=== PATIENT | male | born 1965 | race Caucasian/White ===

== ENCOUNTER 2016-10-31 00:26 | Emergency (ER) | payer BC ==
[2016-10-31] MEDS ORDERED: NS 0.9% 1000 ML* 1,000 ML IV ONE (00:50)
[2016-10-31] MEDS ORDERED: Ketorolac INJ* 30 MG/ML 1 ML VIAL IV PUSH ONE (00:50)
--- NOTE | 2016-10-31 01:03 | ED ---
consuelo Steele Timothy, scribed for Morris Araujo MD on 10/31/16 at 0043 . GI/ HPI - HPI Summary HPI Summary: Sabas Velasquez is a 51 yo male presenting to [facility] with 1/10 right flank pain since 2030 10/30/16. He denies nausea. He states he is passing a kidney stone. He has self-medicated with 2 pain pills with some relief. His MHx includes kidney stones. - History of Current Complaint Chief Complaint: EDFlankPain Time Seen by Provider: 10/31/16 00:41 Stated Complaint: RT FLANK PAIN Hx Obtained From: Patient Timing: Constant Severity: Moderate Current Severity: Moderate Pain Intensity: 1 Location of Pain: Flank - right Associated Signs and Symptoms: Positive: Flank Pain - right side - Allergy/Home Medications Allergies/Adverse Reactions: Allergies Allergy/AdvReac Type Severity Reaction Status Date / Time No Known Allergies Allergy Verified 10/31/16 00:30 PMH/Surg Hx/FS Hx/Imm Hx History: Reports: Hx Kidney Stones Infectious Disease History: No Infectious Disease History: Denies: Traveled Outside the [place] in Last 30 Days - Family History Known Family History: Negative: Cardiac Disease, Diabetes - Social History Lives: With Family Hx Substance Use: No Substance Use Type: Reports: None Hx Tobacco Use: No Smoking Status (MU): Never Smoked Tobacco Review of Systems Constitutional: Negative Eyes: Negative ENT: Negative Cardiovascular: Negative Respiratory: Negative Gastrointestinal: Negative Positive: flank pain - right side Musculoskeletal: Negative Skin: Negative Neurological: Negative Psychological: Normal All Other Systems Reviewed And Are Negative: Yes Physical Exam Triage Information Reviewed: Yes Vital Signs On Initial Exam: Initial Vitals Temp Pulse Resp BP Pulse Ox 97.7 F 96 18 151/83 95 10/31/16 00:28 10/31/16 00:28 10/31/16 00:28 10/31/16 00:28 10/31/16 00:28 Vital Signs Reviewed: Yes Appearance: Positive: Well-Appearing, No Pain Distress Skin: Positive: Warm Head/Face: Positive: Normal Head/Face Inspection Eyes: Positive: LIZBET ENT: Positive: Hearing grossly normal Neck: Positive: Supple Respiratory/Lung Sounds: Positive: Clear to Auscultation, Breath Sounds Present Cardiovascular: Positive: RRR Abdomen Description: Positive: Nontender, No Organomegaly, Soft. Negative: CVA Tenderness (R), CVA Tenderness (L) Bowel Sounds: Positive: Present Musculoskeletal: Positive: Strength/ROM Intact Neurological: Positive: Alert, Oriented to Person Place, Time Diagnostics - Vital Signs Vital Signs Temp Pulse Resp BP Pulse Ox 10/31/16 00:28 97.7 F 96 18 151/83 95 - Laboratory Result Diagrams: 10/31/16 00:55 10/31/16 00:55 Lab Statement: Any lab studies that have been ordered have been reviewed, and results considered in the medical decision making process. Re-Evaluation - Re-Evaluation First Eval Change: Improved - reains pain free GIGU Course/Dx - Course Assessment/Plan: Sabas Velasquez is a 51 yo male presenting to [facility] with right flank pain since 10/30/16 pm, with a Hx of kidney stones. In the ED he was given IV fluids and toradol for pain management. After clinical examination and review of his lab work, he will be discharged home with renal colic with appropriate instructions. - Diagnoses Differential Diagnoses - Male: Renal Calculi Provider Diagnoses: Renal colic on right side Discharge - Discharge Plan Condition: Stable Disposition: HOME Patient Education Materials: Renal Colic (ED) Referrals: Sol Rock MD [Primary Care Provider] - Dominguez Centeno MD [Medical Doctor] - 2 Days Additional Instructions: Please follow up with Dr. Centeno regarding your visit to the emergency department tonight. Return to the emergency department with any new or recurring symptoms. The documentation as recorded by the consuelo aranda Timothy accurately reflects the service I personally performed and the decisions made by , Morris Araujo MD.
[2016-10-31 01:06] LABS: Hematocrit 42 % (42-52); Hemoglobin 14.3 g/dl (14.0-18.0); Mean Corpuscular HGB Conc 34 g/dl (31-36); Mean Corpuscular Hemoglobin 30 pg (27-31); Mean Corpuscular Volume 87 fL (80-94); Mean Platelet Volume 9 um3 (7.4-10.4); Red Blood Count 4.82 10^6/ul (4.0-5.4); Red Cell Distribution Width 13 % (10.5-15); White Blood Count 7.1 10^3/ul (3.5-10.8)
[2016-10-31 01:26] LABS: BUN/Creatinine Ratio 14.7 (8-20); EGFR African American 70.5 (>60); EGFR Non-African American 54.8 (>60); Potassium 3.3 mmol/L (3.5-5.0)
[2016-10-31 02:11] LABS: Urine Bacteria Absent (Absent); Urine Bilirubin Negative (Negative); Urine Glucose Negative (Negative); Urine Nitrite Negative (Negative)
[2016-10-31 03:00] VITALS: BP 123/80
== END 2016-10-31 03:38 | disposition home or self-care (01) ==
LOC: ED 00:26
DX: N23 Unspecified renal colic (principal); R10.84 Generalized abdominal pain
CPT/HCPCS: 36415; 80048; 81003; 81015; 85025; 96374; 99282; J1885

== ENCOUNTER 2017-02-11 07:13 | Day surgery (SDC) | payer BC ==
--- NOTE | 2017-02-10 01:35 | HP ---
CC: Dr. Rock * HISTORY AND PHYSICAL: DATE OF PLANNED ADMISSION AND SURGERY: 02/11/17 HISTORY OF PRESENT ILLNESS: Mr. Velasquez is a 51-year-old white male, who is admitted with right ureteral calculus for cystoscopy, right ureteroscopy, laser lithotripsy and right ureteral stent placement. I have been following Mr Velasquez for the last 10 years because of history of renal calculus disease. He had passed a stone spontaneously in the past. He was known to have a 6-mm calculus in his right kidney. About 3 months ago, he had an episode of right renal colic, requiring a visit to the emergency room. He was then worked up and had a renal ultrasound, which showed a 6 to 7-mm calculus in the proximal right ureter with mild hydronephrosis. The patient was managed conservatively and he spontaneously improved. On his follow-up visit 2 days prior to the planned admission, he reported having on and off discomfort in the right flank, bladder and Rt suprapubic pain. He did not have any acute colic, fever, or chills. He had a renal ultrasound which showed 2 mild to moderate Rt hydronephrosis, distal Rt ureteral calculi, 8 mm and 6 mm in size, with edema of the adjacent ureteral wall and decreased Rt ureteral jets. KUB,showed a distal right ureteral calculus. Because of the above history and the fact that the stone has not passed in 3-1/2 months, the patient is admitted for the above procedure. PAST MEDICAL HISTORY AND SYSTEM REVIEW: Otherwise negative. He is in excellent health. MEDICATIONS: He is on no chronic medications. ALLERGIES: He denies any allergies to medications. PHYSICAL EXAMINATION GENERAL: Pleasant, healthy, and fit looking white male, who looks good for his age. VITAL SIGNS: Blood pressure 130/85, pulse 78, temperature 96.8. LUNGS: Clear. HEART: Regular and rhythmic. No murmurs. ABDOMEN: Soft. No masses. No tenderness. There is mild right CVA tenderness. EXTERNAL GENITALIA: Normal. RECTAL: Had shown a non-enlarged and non-suspicious prostate. IMPRESSION: Distal right ureteral calculi with moderate right hydronephrosis and decreased right ureteral jets with the stones having not passed in the last 3-1/2 months. PLAN: Plan is for right ureteroscopy, laser lithotripsy, and right ureteral stent placement. I discussed the above plans in detail with the patient. All his questions were answered. [id number]/[facility] #: [id number] HARDY
[~2017-02-11 07:13] MED LIST: Buffered Lidocaine 0.9% SYRIN* 5 ML/SYR SYRINGE INTRADERM ONE; Dexamethasone IV* 4 MG/ML 1 ML (4 MG) IV SLOW PU ONE; Dexamethasone IV* 4 MG/ML 1 ML (4 MG) ONE; Famotidine IV* 10 MG/ML 2 ML (20 mg) IV ONE; Famotidine IV* 10 MG/ML 2 ML (20 mg) ONE; cefTRIAXone(*) 2 GM ADDV.VIAL IVPB ONE
[2017-02-11] MEDS ORDERED: Midazolam* 1 MG/ML 2 ML VIAL (2 MG) ONE (09:59)
[2017-02-11] MEDS ORDERED: fentaNYL* 50 MCG/ML 2 ML VIAL (100 MCG VIAL) ONE (09:59)
[2017-02-11] MEDS ORDERED: Ondansetron INJ* 2 MG/ML VIAL ONE (10:38)
[2017-02-11] MEDS ORDERED: Ketorolac INJ* 30 MG/ML 1 ML VIAL ONE (10:38)
[2017-02-11] MEDS ORDERED: Propofol* 10 MG/ML 20 ML BTL IV PUSH ONE (10:38)
[2017-02-11] MEDS ORDERED: DiMENhydriNATE IV* 50 MG/ML VIAL IV PUSH PRN (11:00)
[2017-02-11] MEDS ORDERED: fentaNYL* 50 MCG/ML 2 ML VIAL (100 MCG VIAL) IV PRN (11:00)
--- NOTE | 2017-02-11 11:14 | RAD ---
INDICATION: Right ureteral calculi COMPARISONS: None relevant TECHNIQUE: Fluoroscopy was provided for a retrograde pyelogram and stent placement. Total fluoroscopy time is: 7 seconds FINDINGS: Spot images demonstrate contrast and a ureteral stent within the right renal collecting system. IMPRESSION: FLUOROSCOPY WAS PROVIDED FOR A RETROGRADE PYELOGRAM AND STENT PLACEMENT CPT II Codes: 6045F
[2017-02-11 12:17] VITALS: BP 118/83
--- NOTE | 2017-02-12 00:25 | OP ---
CC: Dr. Rock * DATE OF OPERATION: 02/11/17 - [facility] DATE OF : 61 SURGEON: Dominguez Centeno MD ANESTHESIOLOGIST: Dr. Hector Lafleur. ANESTHESIA: General. PRE-OP DIAGNOSIS: Distal right ureteral calculi. POST-OP DIAGNOSIS: Distal right ureteral calculi. OPERATIVE PROCEDURE: 1. Cystoscopy. 2. Right ureteroscopy and basketing of 2 right ureteral calculi (6 mm and 4 mm) . 3. Right retrograde pyelography. 4. Placement of right ureteral stent (6-Welsh). INDICATION FOR PROCEDURE: Mr. Velasquez is a 51-year-old white male who has history of renal calculus disease and who had an episode of right renal colic caused by 6 to 7 mm calculus noted in the proximal ureter about three and a half months ago. The patient was managed conservatively followed with periodic ultrasounds. He presented this week because of right suprapubic and right lower quadrant discomfort associated with frequency and urgency. Renal and full bladder ultrasounds showed two distal right ureteral calculi with edema of the ureter and the bladder mucosa. He also had mild right hydronephrosis. KUB showed distal a right ureteral calculus. Because of the above history and findings and the fact that the stones have not passed in three and a half months and considering the size of the stones noted, the above procedure was advised and accepted. PATHOLOGY: At cystoscopy, the penile and bulbar urethrae looked normal. The prostatic urethra measured about 2.5 cm in length and there was mild prostate enlargement and obstruction. Examination of the bladder showed significant degree of edema and hyperemia involving the right trigone and right ureteral orifice consistent with findings on the ultrasound and indicating a calculus in the intramural portion of the right ureter. The left ureteral orifice looked normal. No other bladder pathology was noted. Upon right ureteroscopy, 2 calculi were noted in the distal ureter just proximal to the level of the orifice. They measured 4 mm and 6 mm. Both calculi had the appearance of calcium oxalate stone. There was edema of the adjacent ureteral mucosa. Right retrograde pyelography showed moderate right hydroureteronephrosis. DESCRIPTION OF PROCEDURE: After successful general anesthesia, the patient was placed in the lithotomy position and was prepped and draped for cystoscopy. Cystoscopy was performed. The bladder was inspected and the findings in the right trigone were noted. A flexible tip guidewire was then introduced into the right orifice and positioned in the area of the renal pelvis. A size 6.5 tapered semirigid ureteroscope was then introduced inside the bladder. A flexible tip basket was then introduced through the port of the ureteroscope and its flexible tip was then introduced into the right orifice and used as a guide to pass the ureteroscope into the right ureter with minimal trauma. The 2 calculi were noted. They were disimpacted. Each stone was then basketed separately and was successfully extracted with no trauma to the ureter. The stones were sent for analysis. The ureteroscope was then introduced into the proximal third of the ureter. No other calculi or pathology were noted. The ureteroscope was then removed. The cystoscope was then introduced over the guidewire. Retrograde pyelography was performed. A size 6-Welsh stent was then placed with the proximal end coiling in the renal pelvis and the distal end coiling inside the bladder. There was prompt drainage of contrast from the kidney and no extravasation. The patient tolerated the procedure well and left the operating room in good condition. The plan is to see the patient in the office next week. We will decide on the timing of the stent removal. [id number]/[facility] #: [id number]
== END 2017-02-11 12:10 | disposition home or self-care (01) ==
LOC: OR 07:13
PROVIDERS: ATTEND Urology
DX: N13.2 Hydronephrosis with renal and ureteral calculous obstruction (principal)
CPT/HCPCS: 74420; 82365; 88300; C1876; J0696; J1100; J1885; J2250; J2405; J2704; J3010

== ENCOUNTER 2023-10-26 18:12 | Observation (INO) ==
[2023-10-26 20:41] LABS: ABS Basophils 0.1 10^3/uL (0.0-0.1); ABS Eosinophils 0.1 10^3/uL (0.0-0.5); ABS Lymphocytes 1.5 10^3/uL (1.0-4.8); ABS Monocytes 0.9 10^3/uL (0.0-1.1); ABS Neutrophils 7.8 10^3/uL (1.5-7.6); ABS Nucleated RBC 0.01 10^3/ul; Hematocrit 42.2 % (38-53); Lymphocyte % 14.1 %; Mean Corpuscular Hemoglobin 30.7 pg (27-33); Mean Corpuscular Hgb Conc 35.4 g/dL (31-36); Mean Corpuscular Volume 86.6 fL (80-97); Mean Platelet Volume 9.3 fL (7.5-11.2); Nucleated Red Blood Cells % 0.1 %/100WBC (0.0-0.8); Platelet Count 143 10^3/uL (150-450); Red Blood Count 4.88 10^6/uL (4.06-5.63); Red Cell Distribution Width 13.6 % (12-17); White Blood Count 10.4 10^3/uL (3.6-10.2)
[2023-10-26 21:04] LABS: Albumin 4.2 g/dL (3.2-5.2); Albumin/Globulin Ratio 1.4 (1-3); C Reactive Protein 99.5 mg/L (<8.01); Calcium 8.9 mg/dL (8.6-10.3); Creatinine, Serum 1.03 mg/dL (0.67-1.17); Potassium 4.4 mmol/L (3.5-5.0); Total Bilirubin 0.5 mg/dL (0.2-1.0); Total Protein 7.2 g/dL (6.4-8.9); eGFR CKD-EPI 83.2 (>60)
[2023-10-26] MEDS: MULTIPLE ELECTROLYTES IV ONE (22:01)
[2023-10-26 22:53] LABS: Erythrocyte Sed Rate 22 mm/Hr (0-19)
[2023-10-26] MEDS: cefTRIAXone 2 gm/50 mL D5W 2 GM/50 ML BAG IV ONE (23:28)
[2023-10-27] MEDS: Vancomycin 1,250 MG in NS 0.9% 250 ml 250 ML IVPB SCH ×2 (02:31→10:18)
[2023-10-27] MEDS ORDERED: Vancomycin per Pharmacy 1 EA NOTE FOLLOW UP SCH (06:00)
[2023-10-27] MEDS ORDERED: Acetaminophen IV 1 GM/100ML 1,000 MG/100 ML BAG IV PRN (10:42)
[2023-10-27] MEDS: Morphine 2 MG/ML SYRINGE IV PRN (10:58)
[2023-10-27 14:43] VITALS: BP 143/92
[2023-10-27] MEDS ORDERED: cefTRIAXone 1 gm/50 mL D5W 1 GM/50 ML BAG IV SCH (21:00)
[2023-10-28] MEDS ORDERED: Vancomycin Trough Check NOTE FOLLOW UP ONE (09:30)
== END 2023-10-27 14:42 | disposition short-term general hospital (02) ==
LOC: EDHOLD 18:12 → ED 18:12 → SUATTDRO 10-27 03:44 → EDHOLD 10-27 14:41
PROVIDERS: ADMIT Internal Medicine; ATTEND Internal Medicine